=== PATIENT | male | born 1955 | race Caucasian/White ===

== ENCOUNTER → 2017-03-30 | Outpatient (REF) | LOC: LAB 07:46 | DX: Z00.00 Encounter for general adult medical examination without abnormal findings (principal); Z11.59 Encounter for screening for other viral diseases; R73.9 Hyperglycemia, unspecified ==

== ENCOUNTER → 2017-10-03 | Outpatient (CLI) | payer OTHER | LOC: RAD 09:00 | DX: R74.8 Abnormal levels of other serum enzymes (principal) ==

== ENCOUNTER → 2020-11-20 | Outpatient (CLI) | payer OTHER ==
[2020-11-20 13:25] LABS: EOS # 0.5 (0.04-0.40); HEMATOCRIT 43.1 % (42.0-52.0); LYMPH# 1.4 (1.50-4.00); MEAN CELL VOLUME 93 fl (78-100); MEAN CORPUSCULAR HEMOGLOBIN 32 pg (27-31); MEAN CORPUSCULAR HGB CONC 35 g/dL (33-37); MEAN PLATELET VOLUME 9.5 fl (7.4-10.4); MONO # 0.7 (0.20-0.80); NEU # 3.5 (1.40-6.50); PLATELET COUNT 205 K/mm3 (130-400); RED BLOOD COUNT 4.64 M/mm3 (4.20-5.60); RED CELL DISTRIBUTION WIDTH 11.6 % (11.5-14.5); WHITE BLOOD COUNT 6.2 K/mm3 (4.8-10.8)
[2020-11-20 13:27] LABS: EOS % 7.6 % (0.0-4.0)
== END ==
LOC: LAB 13:13
PROVIDERS: Family Medicine
DX: D69.6 Thrombocytopenia, unspecified (principal)

== ENCOUNTER → 2020-11-30 | Outpatient (CLI) | payer OTHER ==
[2020-11-30 10:44] LABS: EOS # 0.4 (0.04-0.40); EOS % 7.7 % (0.0-4.0); HEMATOCRIT 40.6 % (42.0-52.0); HEMOGLOBIN 14.1 g/dL (13.5-18.0); LYMPH# 1.5 (1.50-4.00); MEAN CELL VOLUME 91 fl (78-100); MEAN CORPUSCULAR HEMOGLOBIN 32 pg (27-31); MEAN CORPUSCULAR HGB CONC 35 g/dL (33-37); MEAN PLATELET VOLUME 10.7 fl (7.4-10.4); MONO # 0.7 (0.20-0.80); PLATELET COUNT 70 K/mm3 (130-400); RED BLOOD COUNT 4.44 M/mm3 (4.20-5.60); RED CELL DISTRIBUTION WIDTH 11.5 % (11.5-14.5); WHITE BLOOD COUNT 5.6 K/mm3 (4.8-10.8)
== END ==
LOC: LAB 09:41
PROVIDERS: Family Medicine
DX: D69.6 Thrombocytopenia, unspecified (principal)

== ENCOUNTER → 2021-10-26 | Outpatient (CLI) | payer OTHER | LOC: RAD 08:35 | DX: K76.0 Fatty (change of) liver, not elsewhere classified (principal) ==

== ENCOUNTER → 2021-11-09 | Outpatient (CLI) | payer OTHER | LOC: RAD 08:56 | DX: K57.92 Diverticulitis of intestine, part unspecified, without perforation or abscess without bleeding (principal); K52.9 Noninfective gastroenteritis and colitis, unspecified | CPT/HCPCS: Q9967 ==

== ENCOUNTER → 2021-11-18 | Outpatient (CLI) | payer OTHER | LOC: RAD 08:57 | DX: R07.9 Chest pain, unspecified (principal); R63.4 Abnormal weight loss | CPT/HCPCS: Q9967 ==

== ENCOUNTER → 2021-12-13 | Outpatient (CLI) | payer OTHER ==
[2021-12-13 12:44] LABS: BASO # 0.03 K/mm3 (0.02-0.10); EOS # 0.14 K/mm3 (0.04-0.40); EOS % 2.4 % (0.0-4.0); HEMATOCRIT 38.5 % (42.0-52.0); HEMOGLOBIN 13.5 g/dL (13.5-18.0); LYMPH# 0.84 K/mm3 (1.50-4.00); MEAN CELL VOLUME 89 fl (78-100); MEAN CORPUSCULAR HEMOGLOBIN 31 pg (27-31); MEAN CORPUSCULAR HGB CONC 35 g/dL (33-37); NEU # 4.14 K/mm3 (1.40-6.50); PLATELET COUNT 244 K/mm3 (130-400); RED BLOOD COUNT 4.33 M/mm3 (4.20-5.60); RED CELL DISTRIBUTION WIDTH 11.7 % (11.5-14.5); WHITE BLOOD COUNT 5.8 K/mm3 (4.8-10.8)
[2021-12-13 12:46] LABS: ALBUMIN 3.8 g/dL (3.4-4.8)
[2021-12-13 12:47] LABS: CALCIUM 9.8 mg/dL (8.3-10.5)
[2021-12-13 12:48] LABS: TOTAL PROTEIN 7.5 g/dL (6.2-8.1)
[2021-12-13 12:50] LABS: TOTAL BILIRUBIN 1.2 mg/dL (0.2-1.2)
[2021-12-13 14:10] LABS: URINE APPEARANCE CLEAR; URINE BILIRUBIN 2+ (NEGATIVE); URINE BLOOD NEGATIVE (NEGATIVE); URINE COLOR YELLOW; URINE GLUCOSE NEGATIVE (NEGATIVE); URINE KETONE NEGATIVE (NEGATIVE); URINE LEUKOCYTE ESTERASE NEGATIVE (NEGATIVE); URINE MUCUS PRESENT (NOT PRESENT); URINE NITRATE NEGATIVE (NEGATIVE); URINE PROTEIN(semi-quant) 1+ (NEGATIVE); URINE UROBILINOGEN 1 mg/dL (NORMAL)
== END ==
LOC: LAB 12:12
PROVIDERS: Family Medicine
DX: R10.84 Generalized abdominal pain (principal); R82.90 Unspecified abnormal findings in urine

== ENCOUNTER → 2021-12-17 | Outpatient (CLI) | payer OTHER ==
[~2021-12-17] MED LIST: AMBIEN CR12.5 MG PO; CARAFATE 1GM1 G PO; LISINOPRIL20 MG PO; METOPROLOL SUCC25 M1 PO; PERCOCET 325 MG1 TA2 PO; PROTONIX TR40 M1 PO
== END ==
LOC: RAD 08:57
DX: R10.84 Generalized abdominal pain (principal)
CPT/HCPCS: Q9967

== ENCOUNTER 2021-12-18 18:09 | Emergency (ER) | payer OTHER ==
[2021-12-18] MEDS ORDERED: PROTONIX TR40 M1 PO (18:33)
[2021-12-18] MEDS ORDERED: LISINOPRIL20 MG PO (18:33)
[2021-12-18] MEDS ORDERED: METOPROLOL SUCC25 M1 PO (18:34)
[2021-12-18] MEDS ORDERED: CARAFATE 1GM1 G PO (18:34)
[2021-12-18] MEDS ORDERED: AMBIEN CR12.5 MG PO (18:35)
[2021-12-18] MEDS ORDERED: PERCOCET 325 MG1 TA2 PO (18:35)
[2021-12-18 19:35] LABS: BASO # 0.03 K/mm3 (0.02-0.10); EOS # 0.05 K/mm3 (0.04-0.40); EOS % 0.7 % (0.0-4.0); HEMATOCRIT 40.8 % (42.0-52.0); HEMOGLOBIN 14.5 g/dL (13.5-18.0); LYMPH# 1.09 K/mm3 (1.50-4.00); MEAN CELL VOLUME 88 fl (78-100); MEAN CORPUSCULAR HEMOGLOBIN 31 pg (27-31); MEAN CORPUSCULAR HGB CONC 36 g/dL (33-37); MEAN PLATELET VOLUME 11.2 fl (7.4-10.4); MONO # 0.55 K/mm3 (0.20-0.80); NEU # 5.64 K/mm3 (1.40-6.50); PLATELET COUNT 81 K/mm3 (130-400); RED BLOOD COUNT 4.66 M/mm3 (4.20-5.60); RED CELL DISTRIBUTION WIDTH 11.7 % (11.5-14.5); WHITE BLOOD COUNT 7.4 K/mm3 (4.8-10.8)
[2021-12-18 19:37] LABS: ALBUMIN 4.1 g/dL (3.4-4.8); POTASSIUM 3.6 mmol/L (3.5-5.1)
[2021-12-18 19:39] LABS: CALCIUM 9.8 mg/dL (8.3-10.5)
[2021-12-18 19:40] LABS: TOTAL PROTEIN 8.2 g/dL (6.2-8.1)
[2021-12-18 19:42] LABS: TOTAL BILIRUBIN 1.9 mg/dL (0.2-1.2)
[2021-12-18 20:52] VITALS: BP 163/98
== END 2021-12-18 20:52 | disposition home or self-care (01) ==
LOC: ED 18:09
PROVIDERS: Family Medicine
DX: C22.8 Malignant neoplasm of liver, primary, unspecified as to type (principal)
CPT/HCPCS: J1170

== ENCOUNTER → 2022-04-28 | Outpatient (CLI) | payer MEDICARE | LOC: RAD 12:28 | DX: R18.8 Other ascites (principal) | CPT/HCPCS: 19804; C1729 ==

== ENCOUNTER → 2022-05-09 | Outpatient (CLI) | payer MEDICARE ==
[~2022-05-09] VITALS: Ht 182.9 cm; Wt 81.8 kg
[~2022-05-09] MED LIST changes: +ATIVAN0.5 MG PO; +DECADRON4 M1 PO; +DURAGESIC75 MCG/PAT TD; +ONDANSETRON HYDR8 MG PO; +OXYCODONE HCL10 M1 PO; +XARELTO2.5 MG
[2022-05-09 08:59] VITALS: BP 113/75
[2022-05-09 09:35] VITALS: BP 107/63
== END ==
LOC: RAD 07:13
DX: R18.8 Other ascites (principal)
CPT/HCPCS: C1729; P9047

== ENCOUNTER → 2022-05-16 | Outpatient (CLI) | payer MEDICARE | LOC: RAD 07:22 | DX: R18.8 Other ascites (principal) | CPT/HCPCS: 19804; C1729 ==

== ENCOUNTER → 2022-05-23 | Outpatient (CLI) | payer MEDICARE | LOC: RAD 07:26 | DX: E87.70 Fluid overload, unspecified (principal); R18.8 Other ascites; R14.0 Abdominal distension (gaseous) | CPT/HCPCS: 19804; C1729 ==

== ENCOUNTER → 2022-05-30 | Outpatient (CLI) | payer MEDICARE | LOC: RAD 07:40 | DX: R18.8 Other ascites (principal); E87.70 Fluid overload, unspecified | CPT/HCPCS: 19804; C1729 ==

== ENCOUNTER → 2022-06-06 | Outpatient (CLI) | payer MEDICARE ==
[~2022-06-06] VITALS: Ht 182.9 cm; Wt 81.8 kg
[~2022-06-06] MED LIST changes: +MS CONTIN60 MG PO
[2022-06-06 09:47] VITALS: BP 100/65
[2022-06-06 11:26] VITALS: BP 97/40
== END ==
LOC: RAD 07:29 → AMSURD 07:29
DX: E87.70 Fluid overload, unspecified (principal); R18.8 Other ascites
CPT/HCPCS: C1729; J1644; P9047

== ENCOUNTER → 2022-06-13 | Outpatient (CLI) | payer MEDICARE ==
[~2022-06-13] VITALS: Ht 182.9 cm; Wt 81.8 kg
[2022-06-13 09:02] VITALS: BP 112/67
[2022-06-13 09:47] VITALS: BP 98/53
== END ==
LOC: RAD 07:09
DX: E87.70 Fluid overload, unspecified (principal)
CPT/HCPCS: C1729; J1644; P9047

== ENCOUNTER → 2022-06-23 | Outpatient (CLI) | payer MEDICARE ==
[~2022-06-23] VITALS: Ht 182.9 cm; Wt 81.8 kg
[2022-06-23 15:30] VITALS: BP 94/57
[2022-06-23 17:10] VITALS: BP 95/58
[2022-06-23 17:43] LABS: POTASSIUM 3.7 mmol/L (3.5-5.1)
[2022-06-23 17:45] LABS: CALCIUM 8.2 mg/dL (8.3-10.5)
[2022-06-23 18:18] LABS: PROTHROMBIN TIME 15.5 SECONDS (9.0-12.0)
== END ==
LOC: RAD 13:29
PROVIDERS: Internal Medicine Gastroenterology
DX: R18.8 Other ascites (principal)
CPT/HCPCS: C1729; J1644; P9047

== ENCOUNTER → 2022-06-30 | Outpatient (CLI) | payer MEDICARE | LOC: RAD 13:38 | DX: R18.8 Other ascites (principal); E87.70 Fluid overload, unspecified | CPT/HCPCS: 19804; C1729 ==

== ENCOUNTER → 2022-07-07 | Outpatient (CLI) | payer MEDICARE | LOC: RAD 12:03 | DX: R18.8 Other ascites (principal); E87.70 Fluid overload, unspecified | CPT/HCPCS: 15992 ==

== ENCOUNTER → 2022-08-11 | Outpatient (CLI) | payer MEDICARE | LOC: RAD 14:09 | DX: E87.70 Fluid overload, unspecified (principal) | CPT/HCPCS: 19804; C1729 ==

== ENCOUNTER → 2022-09-01 | Outpatient (CLI) | payer MEDICARE | LOC: RAD 13:35 | DX: R18.8 Other ascites (principal); E87.70 Fluid overload, unspecified | CPT/HCPCS: 19804; C1729 ==

== ENCOUNTER → 2022-09-15 | Outpatient (CLI) | payer MEDICARE ==
[~2022-09-15] VITALS: Ht 182.9 cm; Wt 81.8 kg
[2022-09-15 15:38] VITALS: BP 107/68
== END ==
LOC: AMSURD 13:32 → RAD 13:32
DX: R18.8 Other ascites (principal); E87.70 Fluid overload, unspecified
CPT/HCPCS: C1729; P9047

== ENCOUNTER → 2022-11-14 | Outpatient (CLI) | payer MEDICARE ==
[~2022-11-14] VITALS: Ht 182.9 cm; Wt 81.8 kg
[2022-11-14 09:00] VITALS: BP 107/63
[2022-11-14 10:06] VITALS: BP 106/59
== END ==
LOC: RAD 07:00
DX: R18.8 Other ascites (principal); E87.70 Fluid overload, unspecified
CPT/HCPCS: C1729; J1644; P9047

== ENCOUNTER → 2022-11-24 | Outpatient (CLI) | payer MEDICARE ==
[~2022-11-24] VITALS: Ht 182.9 cm; Wt 81.8 kg
[2022-11-24 16:08] VITALS: BP 108/65
--- NOTE | 2022-11-24 17:42 | NUR ---
PRESSURE DRESSING PLACED TO PARACENTISIS SITE PER PATIENT REQUEST. PT ALERT AND ORIENTED. NAD. AMBLATES TO EMERGENCY ENTRANCE WITH NURSE AND PULLS CAR UP.
== END ==
LOC: RAD 14:41
DX: R18.8 Other ascites (principal); E87.70 Fluid overload, unspecified; R14.0 Abdominal distension (gaseous)
CPT/HCPCS: C1729; J1644; P9047